=== PATIENT | female | born 1980 | race Caucasian/White ===

== ENCOUNTER 2016-12-26 08:20 | Emergency (ER) | payer BC ==
[~2016-12-26] VITALS: Ht 162.6 cm; Wt 77.1 kg
[~2016-12-26 08:20] MED LIST: BACL10TA PO; IBUP-1780 PO; OXYC-464 PO; PRD20T PO
--- OUTSIDE RECORDS SUMMARY | 2016-12-26 08:26 | XMS REPORT | Continuity of Care Document ---
Author Author [facility] Organization [facility] Address Unknown Phone Unavailable Allergies Active Description Code Type Severity Reaction Onset Reported/Identified Relationship to Patient Clinical Status Yes NKANo Known Allergies NKA Miscellaneous Allergy Mild N/A 02/27/2007 Medications Problems Date Dx Coded Attending Type Code Diagnosis Diagnosed By 12/27/2015 DARLING GUAJARDO MD, Ot N92.5 08/25/2016 DARLING GUAJARDO MD, Ot N92.5 OTHER SPECIFIED IRREGULAR MENSTRUATION 08/25/2016 VIOLETTE BYRNES DO Ot M46.1 SACROILIITIS, NOT ELSEWHERE CLASSIFIED 08/25/2016 VIOLETTE BYRNES DO Ot M79.604 PAIN IN RIGHT LEG 08/26/2016 VIOLETTE BYRNES DO Ot M46.1 SACROILIITIS, NOT ELSEWHERE CLASSIFIED 08/26/2016 VIOLETTE BYRNES DO Ot M79.604 PAIN IN RIGHT LEG 08/30/2016 VIOLETTE BYRNES DO Ot M46.1 SACROILIITIS, NOT ELSEWHERE CLASSIFIED 08/30/2016 VIOLETTE BYRNES DO Ot M79.604 PAIN IN RIGHT LEG Procedures Results Encounters ACCT No. Visit Date/Time Discharge Status Pt. Type Provider Facility Loc./Unit Complaint [id number] 08/25/2016 08:35:00 2015 10:24:00 DIS Emergency VIOLETTE BYRNES DO [facility] ER RIGHT LEG PAIN [id number] 12/26/2016 08:22:00 ACT Emergency TOSHA RENDON MD [facility] ER FALL/HEAD LAC [id number] 12/08/2015 11:11:00 ACT Outpatient DARLING GUAJARDO MD [facility] LAB OTHER SPECIFIED IRREGULAR MENSTRUATION
[2016-12-26 09:07] LABS: BASOPHILS % (AUTO) 0 % (0-10); EOSINOPHILS # (AUTO) 0.1 10^3/uL (0.0-0.3); EOSINOPHILS % (AUTO) 1 % (0-10); LYMPHOCYTES # (AUTO) 0.6 X 10^3 (1.0-4.0); LYMPHOCYTES % (AUTO) 12 % (12-44); MEAN CORPUSCULAR HEMOGLOBIN 30 PG (25-34); MEAN CORPUSCULAR HGB CONC 33 G/DL (32-36); MEAN CORPUSCULAR VOLUME 92 FL (80-99); MEAN PLATELET VOLUME 10.2 FL (7.4-10.4); MONOCYTES # (AUTO) 0.3 X 10^3 (0.0-1.0); MONOCYTES % (AUTO) 5 % (0-12); NEUTROPHILS # (AUTO) 4.3 X 10^3 (1.8-7.8); NEUTROPHILS % (AUTO) 82 % (42-75); PLATELET COUNT 210 10^3/uL (130-400); RED BLOOD COUNT 4.33 10^6/uL (4.35-5.85); RED CELL DISTRIBUTION WIDTH 12.3 % (10.0-14.5); WHITE BLOOD COUNT 5.3 10^3/uL (4.3-11.0)
--- NOTE | 2016-12-26 09:09 | ED Syncope ---
General Chief Complaint: Trauma-Non Activation Stated Complaint: FALL/HEAD LAC Nursing Triage Note: Passed out in the basement. Fall backward. Head "killing her". Passed out less than 5 minutes @ 0730. Dizzy and nausea. Denies neck pain. Source of Information: Patient Exam Limitations: No Limitations History of Present Illness Time Seen by Provider: 09:05 Initial Comments The patient is a 36-year-old white female who reports that she was in the basement of her home checking on the wash. She had a sensation that she remembered from her use when she had syncopal attacks. They were attributed to hypoglycemia. These seemed to have passed in adulthood. She attempted to sit in a chair but fell backward striking the back of her head. She believes that she was down less than 5 minutes. Following this she had diaphoresis and a diarrhea stool. She called her and he returned home and brought her here. She has no other illnesses. She is a nurse practitioner for neurologist at [place] Location Injury Occurred: HOME Timing/Prior Episodes: Remote History Symptoms Prior to Episode: Lightheadedness Precipitating Factors: None Loss of Consciousness: Dazed Current Symptoms: Back to Normal Allergies and Home Medications Allergies Coded Allergies: NKANo Known Allergies (Verified Allergy, Mild, 02/27/07) Home Medications Baclofen 10 Mg Tablet 10 MG PO HS (Reported) Ibuprofen 800 Mg Tablet 800 MG PO TID PRN PRN PAIN (Reported) Oxycodone HCl/Acetaminophen 1 Each Tablet #20 1 EACH PO Q6H PRN PRN PAIN Prescribed by: VIOLETTE BYRNES on 08/25/16 0952 Prednisone 20 Mg Tab 5Days 30 MG PO BID Prescribed by: VIOLETTE BYRNES on 08/25/16 1019 Constitutional: see HPI Respiratory: no symptoms reported Cardiovascular: no symptoms reported Gastrointestinal: no symptoms reported Musculoskeletal: no symptoms reported Skin: no symptoms reported Past Fgnzdjw-Uvxsvp-Uwvjjx Hx Patient Social History Alcohol Use: Occasionally Uses Recreational Drug Use: No Smoking Status: Never a Smoker Recent Foreign Travel: No Contact w/Someone Who Travel: No Recent Infectious Disease Expo: No Recent Hopitalizations: No Immunizations Up To Date Date of Influenza Vaccine: Aug 16, 2016 Surgeries HX Surgeries: Yes (D&C) Surgeries: Appendectomy Respiratory Hx Respiratory Disorders: No Cardiovascular Hx Cardiac Disorders: No Neurological Hx Neurological Disorders: No Reproductive System Hx Reproductive Disorders: No Genitourinary Hx Genitourinary Disorders: No Gastrointestinal Hx Gastrointestinal Disorders: No Musculoskeletal Hx Musculoskeletal Disorders: No Endocrine Hx Endocrine Disorders: No HEENT HX ENT Disorders: No Psychosocial Hx Psychiatric Problems: No Blood Transfusions Hx Blood Disorders: No Physical Exam Vital Signs Vital Sign - Last 12Hours 12/26/16 08:37 Temp 97.3 Pulse 83 B/P 112/71 Pulse Ox 100 O2 Delivery Room Air Capillary Refill : Less Than 3 Seconds General Appearance: No Apparent Distress WD/WN HEENT: Normal ENT Inspection Neck: Normal Inspection Cardiovascular: Regular Rate, Rhythm No Edema No Gallop No JVD No Murmur Normal Peripheral Pulses Respiratory: Chest Non Tender Lungs Clear Normal Breath Sounds No Accessory Muscle Use No Respiratory Distress Gastrointestinal: Normal Bowel Sounds No Organomegaly No Pulsatile Mass Non Tender Soft Extremities: Normal Capillary Refill Normal Inspection Normal Range of Motion Non Tender No Calf Tenderness No Pedal Edema Neurologic/Psychiatric: Alert Oriented x3 No Motor/Sensory Deficits Normal Mood/Affect Cranial Nerves: Normal Hearing, Normal Speech, PERRL Motor/Sensory: No Motor Deficit, No Sensory Deficit, No Pronator Drift Skin: Normal Color Warm/Dry Lymphatic: No Adenopathy Comments The patient has a shallow 1 cm laceration oriented horizontally at the occiput. It is well approximated. Progress/Results/Core Measures Results/Orders Lab Results Laboratory Tests Test 12/26/16 08:58 Range/Units Alanine Aminotransferase (ALT/SGPT) 11 0-55 U/L Albumin 4.0 3.2-4.5 G/DL Alkaline Phosphatase 93 40-136 U/L Anion Gap 7 5-14 MMOL/L Aspartate Amino Transf (AST/SGOT) 10 5-34 U/L BUN/Creatinine Ratio 16 Basophils # (Auto) 0.0 0.0-0.1 10^3/uL Basophils (%) (Auto) 0 0-10 % Blood Urea Nitrogen 12 7-18 MG/DL Calcium Level 8.6 8.5-10.1 MG/DL Carbon Dioxide Level 25 21-32 MMOL/L Chloride Level 108 H 98-107 MMOL/L Creatinine 0.74 0.60-1.30 MG/DL Eosinophils # (Auto) 0.1 0.0-0.3 10^3/uL Eosinophils (%) (Auto) 1 0-10 % Estimat Glomerular Filtration Rate > 60 Glucose Level 85 70-105 MG/DL Hematocrit 40 35-52 % Hemoglobin 13.1 11.5-16.0 G/DL Lymphocytes # (Auto) 0.6 L 1.0-4.0 X 10^3 Lymphocytes (%) (Auto) 12 12-44 % Mean Corpuscular Hemoglobin 30 25-34 PG Mean Corpuscular Hemoglobin Concent 33 32-36 G/DL Mean Corpuscular Volume 92 80-99 FL Mean Platelet Volume 10.2 7.4-10.4 FL Monocytes # (Auto) 0.3 0.0-1.0 X 10^3 Monocytes (%) (Auto) 5 0-12 % Neutrophils # (Auto) 4.3 1.8-7.8 X 10^3 Neutrophils (%) (Auto) 82 H 42-75 % Platelet Count 210 130-400 10^3/uL Potassium Level 3.8 3.6-5.0 MMOL/L Red Blood Count 4.33 L 4.35-5.85 10^6/uL Red Cell Distribution Width 12.3 10.0-14.5 % Sodium Level 140 135-145 MMOL/L Total Bilirubin 0.3 0.1-1.0 MG/DL Total Protein 6.7 6.4-8.2 G/DL White Blood Count 5.3 4.3-11.0 10^3/uL My Orders Orders-TOSHA RENDON MD Cbc With Automated Diff (12/26/16 08:54) Comprehensive Metabolic Panel (12/26/16 08:54) Ct Head Wo (12/26/16 09:03) Vital Signs/I&O Vital Sign - Last 12Hours 12/26/16 08:37 Temp 97.3 Pulse 83 B/P 112/71 Pulse Ox 100 O2 Delivery Room Air Blood Pressure Mean: 85 Departure Communication Progress Notes CT scan Santiago was negative. The patient reports a dull headache but no other symptoms. Impression Impression: Primary Impression: syncopal episode Additional Impression: scalp laceration Disposition: 01 HOME, SELF-CARE Condition: Improved Departure-Patient Inst. Decision time for Depature: 10:20 Referrals: NO,LOCAL PHYSICIAN (PCP) Primary Care Physician Add. Discharge Instructions: All discharge instructions reviewed with patient and/or family. Voiced understanding. If recurrent syncope, a more sophisticated workup may be useful. Reported this to your physician. You may use Tylenol today for headache. TOSHA RENDON MD Dec 26, 2016 09:09
--- NOTE | 2016-12-26 09:23 | Diagnostic Imaging Report ---
PROCEDURE: CT head without contrast. TECHNIQUE: Multiple contiguous axial images were obtained through the brain without the use of intravenous contrast. INDICATION: Passed out and hit the back of the head. FINDINGS: There is no intracranial hemorrhage, edema or mass effect. The brain parenchyma appears unremarkable. No hydrocephalus. The visualized portions of the orbits and paranasal sinuses appear unremarkable. IMPRESSION: Unremarkable study. Dictated by: Dictated on workstation # [id number]
[2016-12-26 09:33] LABS: ALANINE AMINOTRANSFERASE 11 U/L (0-55); ANION GAP 7 MMOL/L (5-14); ASPARTATE AMINO TRANSFERASE 10 U/L (5-34); BILIRUBIN,TOTAL 0.3 MG/DL (0.1-1.0); BLOOD UREA NITROGEN 12 MG/DL (7-18); BUN/CREATININE RATIO 16; CALCIUM 8.6 MG/DL (8.5-10.1); CARBON DIOXIDE 25 MMOL/L (21-32); CHLORIDE 108 MMOL/L (98-107); CREATININE SERUM 0.74 MG/DL (0.60-1.30); GFR ESTIMATED > 60; GLUCOSE 85 MG/DL (70-105); POTASSIUM 3.8 MMOL/L (3.6-5.0); SODIUM 140 MMOL/L (135-145); TOTAL PROTEIN 6.7 G/DL (6.4-8.2)
[2016-12-26 10:38] VITALS: BP 112/71
== END 2016-12-26 10:38 | disposition home or self-care (01) ==
LOC: EDUNIT# 08:20 → ER 08:22
DX: R55 Syncope and collapse (principal); S01.01XA Laceration without foreign body of scalp, initial encounter; W07.XXXA Fall from chair, initial encounter; Y92.018 Other place in single-family (private) house as the place of occurrence of the external cause; Y99.8 Other external cause status
CPT/HCPCS: 36415; 70450; 80053; 85025; 99282